=== PATIENT | female | born 1990 | race Two or more races ===

== ENCOUNTER 2022-01-13 05:46 | Emergency (ER) | payer SELFPAY ==
[2022-01-13 06:45] LABS: CORONAVIRUS COVID-19 NAA NEGATIVE (NEGATIVE)
== END 2022-01-13 07:15 | disposition home or self-care (01) ==
LOC: JP.ED 05:46
DX: J21.0 Acute bronchiolitis due to respiratory syncytial virus (principal); Z20.822 Contact with and (suspected) exposure to COVID-19
CPT/HCPCS: 0241U; 87081; 87880; 99283

== ENCOUNTER 2022-02-04 05:33 | Emergency (ER) | payer SELFPAY ==
[2022-02-04 06:22] LABS: CORONAVIRUS COVID-19 NAA NEGATIVE (NEGATIVE)
== END 2022-02-04 07:02 | disposition home or self-care (01) ==
LOC: JP.ED 05:33
DX: J10.1 Influenza due to other identified influenza virus with other respiratory manifestations (principal); Z20.822 Contact with and (suspected) exposure to COVID-19
CPT/HCPCS: 0241U; 36415; 71046; 80048; 83605; 85025; 99285